=== PATIENT | female | born 1960 | race Caucasian/White ===

== ENCOUNTER 2020-07-26 08:56 | Outpatient (CLI) | payer OTHER, SELFPAY ==
[2020-07-26 10:02] LABS: SARS-CoV-2 Ag Positive (Negative)
== END 2020-07-26 08:57 | disposition home or self-care (01) ==
LOC: CHSLAB 08:58
PROVIDERS: PCP Family Medicine; Visit Provider Family Medicine
DX: U07.1 COVID-19 (principal)
CPT/HCPCS: 87426

== ENCOUNTER 2021-03-05 16:24 | Outpatient (CLI) | payer OTHER, SELFPAY ==
[2021-03-05 17:41] LABS: SARS-CoV-2 RNA PCR Negative (Negative)
== END 2021-03-05 16:25 | disposition home or self-care (01) ==
LOC: CHSLAB 16:27
PROVIDERS: PCP Family Medicine; Visit Provider Family Medicine
DX: R05 Cough (principal); Z20.822 Contact with and (suspected) exposure to COVID-19
CPT/HCPCS: C9803; U0003; U0005

== ENCOUNTER 2021-08-21 10:48 | Outpatient (CLI) | payer OTHER, SELFPAY ==
--- NOTE | ~2021-08-21 | XR_ITS ---
XR femur LT min 2V DATE: 08/21/2021 11:18 INDICATION: Left leg pain TECHNIQUE: AP and lateral views COMPARISON: None FINDINGS: No fracture or dislocation, periosteal reaction or bone destruction is detected. There is osteoarthritic change at the knee, greater at the medial compartment. IMPRESSION: Left knee osteoarthritis Reviewed, dictated and finalized at location B. RBOAT MECHANIC IMPRESSION: Left knee osteoarthritis
--- NOTE | ~2021-08-21 | XR_ITS ---
XR knee LT 3V DATE: 08/21/2021 11:18 INDICATION: Left knee pain, strain TECHNIQUE: AP, lateral, sunrise views COMPARISON: None FINDINGS: There is tricompartment osteoarthritis, greater involvement of patellofemoral and medial co mpartments including moderately prominent loss of medial compartment joint space height. Hypertrophic change of the medial tibial spine. No fracture or dislocation or joint effusion, radiopaque intra-articular loose body or chondrocalcino sis is evident. No periosteal reaction or bone destruction. IMPRESSION: Osteoarthritis Reviewed, dictated and finalized at location B. GE HAND IMPRESSION: Osteoarthritis
== END 2021-08-21 10:49 | disposition home or self-care (01) ==
LOC: CHSLAB 10:50
PROVIDERS: PCP Family Medicine; Visit Provider Family Medicine
DX: S76.312A Strain of muscle, fascia and tendon of the posterior muscle group at thigh level, left thigh, initial encounter (principal)
CPT/HCPCS: 73552; 73562

== ENCOUNTER 2021-08-28 15:46 | Outpatient (RCR) | payer OTHER, SELFPAY ==
--- NOTE | 2021-08-28 16:32 | PTOPEVAL ---
Thank you for referring Fortunato Segura to [facility].? The patient is scheduled to be seen for therapy? _3___x/week for 12 visits. Please review, sign, date and return this plan of care WESLEY. I agree with and certify that the following plan of care is medically necessary. Referring Physician Date Admitting Provider: Attending Provider: Osorio Del Angel MD Referring Provider: *PT Outpatient Evaluation Start: 08/28/21 15:53 Freq: Status: Active Protocol: Document 08/28/21 15:53 JUAN JOSÉ (Rec: 08/28/21 16:31 JUAN JOSÉ [id number]) Therapy Assessment Status Assessment Status Assessment Status Evaluation Evaluation Information Problem Diagnosis left thigh pain Onset 04/30/21 Subjective Information Pt. reports that she develop Query Text:As Reported By Patient/ left leg pain sometime in Family April. She describes no particular incident except one day of walking up and down steps frequently. She states that pain is mostly is behind the left knee and can radiate into the thigh. She notices pain mostly after a work day or with getting up from a seated position. 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 Pt. reports that pain is most notable when she is up walking around or having to bend her leg. She reports she will get occassional pain at night. She states that her goal is to decrease her left leg pain with activity. Pain Assessment Timing of Pain Assessment Timing of Pain Assessment Pre-Treatment Pain Scale Pain Scale Used Numeric (1 - 10) Self Report Pain Assessment Left Leg(s) Reported Pain Level 0 Lowest Pain Intensity 0 Greatest Pain Intensity 5 Pain Score Pain Score 0: Self Report Interventions Used Interventions Used By Clinicians Activity or ADL's,Exercise Cervical and Lumbar ROM Lumbar ROM Lumbar Flexion Active [place] Query Text:Hands to: Lumbar Extension (0-40) 10 Query Text:Active in Degrees Lumbar Lateral Flexion Right (0-40) 20 Query Text:Active in Degrees Lumbar Lateral Flexion Left (0-40) 20 Query Text:Active
--- NOTE | 2021-10-13 09:23 | PCPTNOTE ---
Mrs. Segura attended a total of 3 treatment sessions from 08/28/21 to 09/09/21. She was contacted via telephone and stated that she was to see an orthopedic surgeon and would like to hold treatment. She will be discharged from our care. Refer to pt. last Rx note for discharge status.
== END 2021-09-09 10:38 | disposition home or self-care (01) ==
LOC: CHSPT 15:46
PROVIDERS: PCP Family Medicine; Visit Provider Family Medicine
DX: S76.912A Strain of unspecified muscles, fascia and tendons at thigh level, left thigh, initial encounter (principal)
CPT/HCPCS: 97014; 97110; 97161; G0283

== ENCOUNTER 2021-10-21 14:51 | Outpatient (CLI) | payer OTHER, SELFPAY ==
[2021-10-21 15:07] LABS: Basophils Percent Auto 0.9 % (0.0-1.0); Eosinophils Absolute Auto 0.39 K/mm3 (0.02-0.50); Eosinophils Percent Auto 3.6 % (1.0-6.0); Hematocrit 45.1 % (35.0-49.0); Immature Granulocyte Absolute 0.03 K/mm3 (0.00-0.00); Immature Granulocyte Percent A 0.3 % (0.0-0.0); Lymphocytes Absolute Auto 3.27 K/mm3 (1.10-4.50); Mean Corpuscular HGB Conc 33.3 g/dL (32.0-36.0); Mean Corpuscular Hemoglobin 29.5 pg (27.0-31.0); Mean Corpuscular Volume 88.8 fL (78.0-102.0); Mean Platelet Volume 9.2 fl (9.2-11.8); Monocytes Percent Auto 9.2 % (2.0-11.0); Neutrophils Absolute Auto 6.1 K/mm3 (1.7-7.2); Platelet Count Result 416 K/mm3 (150-420); Red Blood Count 5.08 M/mm3 (4.20-5.40); Red Cell Distribution Width 13.3 % (11.6-14.4); White Blood Count 10.9 K/mm3 (4.8-10.8)
[2021-10-21 15:26] LABS: Alanine Aminotransferase 44 U/L (14-59); Albumin Level 3.6 g/dL (3.4-5.0); Alkaline Phosphatase 111 U/L (46-116); Amylase 24 U/L (25-115); Anion Gap 8 mmol/L (8-16); Bilirubin,Total 0.7 mg/dL (0.00-1.00); Blood Urea Nitrogen 21 mg/dL (7-18); CRP 1.2 mg/dL (0.0-0.9); Calcium 8.8 mg/dL (8.5-10.1); Carbon Dioxide 30 mmol/L (21-32); Chloride 102 mmol/L (98-108); Estimated Glomerular Filt Rate > 60; Glucose 253 mg/dL (70-99); Lipase 47 U/L (73-393); Osmolality Calculated 302 mOsm/kg (285-295); Potassium 4.4 mmol/L (3.5-5.1); Sodium 140 mmol/L (136-145); Total Protein 7.4 g/dL (6.4-8.2)
[2021-10-21 15:38] LABS: Aspartate Amino Transferase 18 U/L (15-37)
[2021-10-21 15:39] LABS: D Dimer 13.14 mg/L (0.19-0.50)
== END 2021-10-21 14:52 | disposition home or self-care (01) ==
LOC: CHSLAB 14:52
PROVIDERS: PCP Family Medicine; Visit Provider Nurse Practitioner Family
DX: R10.9 Unspecified abdominal pain (principal); R07.9 Chest pain, unspecified
CPT/HCPCS: 36415; 80053; 82150; 83690; 85025; 85380; 86140

== ENCOUNTER 2021-10-21 16:15 | Emergency (ER) | payer OTHER, SELFPAY ==
--- NOTE | ~2021-10-21 | CT_ITS ---
EXAMINATION: CTA chest PE protocol DATE: 10/21/2021 17:32 INDICATION: Chest pain TECHNIQUE: Computed tomography angiography (CTA) of the chest was performed with 100 mL Omnipaque-350 intravenous contrast timed to evaluate the pulmonary arteries. Coronal maximum intensity projection 3D-reconstructions were created by the technologist. The dose-length product (DLP) was 644.82 mGy-cm. Automated exposure control and iterative reconstruction technique were employed. COMPARISON: 05/19/2011 FINDINGS: The pulmonary arteries are well-opacified. No pulmonary embolism is identified. The lungs a re free of acute opacities. There is no pleural effusion or pneumothorax. No pathologically enlarged thoracic lymph nodes are identified. The heart size is normal. There is severe thoracic spondylosis. IMPRESSION: 1. No pulmonary embolism or acute cardiopulmonary abnormality. Reviewed, dictated and finalized at location F. KLOAD CHECKER
[2021-10-21 16:25] VITALS: BP 150/82; PULSE 82; RESP 20; TEMP 36.4; O2SAT 96
--- NOTE | 2021-10-21 16:37 | ECG_ITS ---
Measurements Intervals [place] Rate: 78 P: 23 VA: 178 QRS: -9 QRSD: 85 T: 11 QT: 385 QTc: 441 Interpretive Statements SINUS RHYTHM DELAYED PRECORDIAL R/S TRANSITION LEFT VENTRICULAR HYPERTROPHY MINIMAL Q WAVES- HIGH LATERAL LEADS BASELINE ARTIFACT- I, II, III, AVR, AVL, AVF, V1-V6 BORDERLINE ECG Electronically Signed On 10-25-2021 19:06:40 MAINFRAME APPLICATIONS DEVELOPER by Benjamin Huston D.O.
[2021-10-21] MEDS: KETOROLAC (*BKC) 60 MG/2 ML VIAL IM (17:13)
[2021-10-21] MEDS: ASPIRIN 325 MG ENTERIC TABLET PO (17:15)
[2021-10-21] MEDS: SODIUM CHLORIDE 0.9% IV 1,000 ML 999 ML IV CONT (17:15)
[2021-10-21 17:17] LABS: Base Excess ABG 0.7 mmol/L (0-2); HCO3 ABG 24.5 mmol/L (23-29); Oxygen Content ABG 20.1 %vol (16.0-22.0); Oxygen Saturation ABG 96.8 % (95-97); Oxyhemoglobin 96.6 % (94-100); PCO2 ABG 36.9 mmHg (35-45); PO2 ABG 87.8 mmHg (80-90); Total Hemoglobin 14.8 g/dL (12.0-18.0); pH ABG 7.44 (7.35-7.45)
[2021-10-21 17:19] LABS: Device ROOM AIR; Modified Allen's Test Pass; Site Drawn LEFT RADIAL
[2021-10-21 17:37] LABS: SARS-CoV-2 Ag Negative (Negative)
[2021-10-21 17:51] LABS: Troponin I 11.7 ng/L (0.00-60.4)
--- NOTE | 2021-10-21 17:52 | PC.NURSE ---
pt resting per cot , watching tv. call mirza in reach. enc to ring for assist as needed.
--- NOTE | 2021-10-21 18:26 | ED.CHESTPAIN ---
HPI - Chest Pain General Chief Complaint: Recheck/Abnormal Lab/Rx Stated Complaint: abdominal pain Time Seen by Provider: 10/21/21 16:18 Source: patient and RN notes reviewed Mode of arrival: ambulatory Limitations: no limitations History of Present Illness MD complaint: chest pain and other (mild persistent central back pain radiating to the chest) Onset (ago): day(s) (2) Timing of current episode: constant and still present Prior episodes: Yes Pain location: left chest and posterior Severity: mild Pain scale (0-10): 6 Quality: aching and dull Context: recent surgery Associated symptoms: other (none.) Treatment prior to arrival: none Related Data Home Medications Medication Instructions Recorded Confirmed atorvastatin 20 mg PO DAILY 10/21/21 10/21/21 hydrochlorothiazide 25 mg PO DAILY 10/21/21 10/21/21 insulin glargine [Basaglar KwikPen 100 unit SUBCUT HS 10/21/21 10/21/21 U-100 Insulin] insulin lispro [Admelog U-100 30 unit SUBCUT TID 10/21/21 10/21/21 Insulin lispro] lisinopril 20 mg PO DAILY 10/21/21 10/21/21 meloxicam 15 mg PO DAILY PRN 10/21/21 10/21/21 omeprazole 20 mg PO DAILY 10/21/21 10/21/21 pantoprazole 40 mg PO DAILY 10/21/21 10/21/21 paroxetine HCl 20 mg PO DAILY 10/21/21 10/21/21 Allergies Allergy/AdvReac Type Severity Reaction Status Date / Time amoxicillin Allergy Unknown Itching Verified 10/21/21 16:57 Penicillins Allergy Unknown Itching Verified 10/21/21 16:57 Sulfa (Sulfonamide Allergy Hives Verified 10/21/21 16:57 Antibiotics) Review of Systems Review of Systems: All systems reviewed & are unremarkable except as noted in HPI and below PMFSH Past Medical History Medical History (Updated 10/22/21 @ 03:55 by Pedro Padilla MD) Chest pain in adult Chest pain of unknown etiology Exam Const: General: healthy appearing, no acute distress and alert Nutritional Appearance: well nourished Orientation/consciousness: patient oriented x3 Limitations: no limitations HENMT: Head: normal to inspection Ears: external ears normal, TM's normal bilaterally and EAC's normal General nose exam: Normal external nose present and Normal nares present Face and sinus: sinuses nontender Mouth: Yes lip normal and Yes moist mucous membranes Eyes: Conjunctivae: conjunctivae normal Pupils: Equal, round and reactive pupils present EOM: EOMs intact bilaterally Neck: Neck: normal visual inspection and no lymphadenopathy Chest: Chest palpation & inspection: normal inspection of the chest Resp: Effort & Inspection: normal respiratory effort Auscultation: clear to auscultation bilaterally Cardio: Rate: regular rate Rhythm: regular rhythm GI: GI Palp: Yes Soft to palpation and No Tenderness to palpation present (GI) Auscultation: normal bowel sounds : General: Yes bladder normal to palpation and Yes no CVA tenderness Back/Spine/Pelvis: Back: no CVA tenderness Skin: General skin exam: normal color Rashes: no rashes Neuro: General: patient oriented x3, moves all extremities, no meningeal signs, no focal motor deficits and CN's II-XI intact bilaterally Extrem: General: normal to inspection and no pedal edema Psych: Appearance: grossly normal and well kempt Mental Status: mental status grossly normal Affect: normal affect Attitude: cooperative Thought content: Yes Normal thought content present Course Course Emergency Course: Pt was stable and comfortable in the ED. Reevaluation(s) Reevaluation #1: VSS Date: 10/21/21 Time: 17:13 Vital Signs Vital signs: Vital Signs Temperature 36.4 C L 10/21/21 16:25 Pulse Rate 82 10/21/21 16:25 Respiratory Rate 20 10/21/21 16:25 Blood Pressure 150/82 H 10/21/21 16:25 Pulse Oximetry 96 10/21/21 16:25 Temperature 36.3 C L 10/21/21 18:33 Pulse Rate 68 10/21/21 18:33 Respiratory Rate 20 10/21/21 18:33 Blood Pressure 182/83 H 10/21/21 18:33 Pulse Oximetry 98 10/21/21 18:33 MDM - Chest Pain Differential
[2021-10-21 18:33] VITALS: BP 182/83; PULSE 68; RESP 20; TEMP 36.3; O2SAT 98
== END 2021-10-21 18:42 | disposition home or self-care (01) ==
PROVIDERS: Emergency Provider Emergency Medicine; PCP Family Medicine
DX: R07.9 Chest pain, unspecified (principal)
CPT/HCPCS: 36415; 36600; 71275; 82805; 84484; 87426; 93005; 96360; 96372; 99284; A9270; C9803; J1885; J7030; Q9967

== ENCOUNTER 2021-11-27 12:06 | Outpatient (CLI) | payer OTHER, SELFPAY ==
[2021-11-27 12:26] LABS: Influenza Control Valid (Valid)
== END 2021-11-27 12:07 | disposition home or self-care (01) ==
LOC: CHSLAB 12:08
PROVIDERS: PCP Family Medicine; Visit Provider Family Medicine
DX: J06.9 Acute upper respiratory infection, unspecified (principal)
CPT/HCPCS: 87081; 87804; 87880

== ENCOUNTER 2021-12-15 11:25 | Outpatient (CLI) | payer OTHER, SELFPAY ==
--- NOTE | ~2021-12-15 | XR_ITS ---
EXAMINATION: XR femur LT min 2V DATE: 12/15/2021 11:52 INDICATION: Strain of muscle, intermittent posterior leg pain. TECHNIQUE: 2 views of left femur on 4 radiographs were obtained. COMPARISON: None. FINDINGS: Bone alignment is normal. No fracture. There is moderate left knee osteoarthritis, worst in the medial compartment. Left hip joint space is normal. No knee joint effusion. IMPRESSION: 1. Moderate left knee osteoarthritis. Reviewed, dictated and finalized at location B.
--- NOTE | ~2021-12-15 | XR_ITS ---
EXAMINATION: XR knee LT 3V DATE: 12/15/2021 11:52 INDICATION: Strain of muscle, intermittent posterior leg pain. TECHNIQUE: 3 views of left knee were obtained. COMPARISON: None. FINDINGS: Bone alignment is normal. No fracture. There is moderate osteoarthritis of medial compartme nt and mild osteoarthritis of lateral and patellofemoral compartments. No knee joint effusion. IMPRESSION: 1. Moderate left knee osteoarthritis. Reviewed, dictated and finalized at location B.
== END 2021-12-15 11:26 | disposition home or self-care (01) ==
LOC: CHSIMG 11:26
PROVIDERS: PCP Family Medicine; Visit Provider Family Medicine
DX: S76.312A Strain of muscle, fascia and tendon of the posterior muscle group at thigh level, left thigh, initial encounter (principal)
CPT/HCPCS: 73552; 73562

== ENCOUNTER 2022-02-19 12:49 | Outpatient (CLI) | payer OTHER, SELFPAY ==
--- NOTE | ~2022-02-19 | MM_ITS ---
EXAMINATION: MM screening richard BI w fer HISTORY: Screening mammogram TECHNIQUE: Craniocaudal and mediolateral oblique 3-D tomosynthesis images were obtained and synthetic 2-D images were generated. CAD analysis was submitted and interpreted. COMPARISON: 07/19/2015 bilateral screening mammogram BREAST PARENCHYMAL COMPOSITION: There are scattered areas of fibroglandular density. FINDINGS: Stable mild fibroglandular asymmetry, more prominent in the posterior upper outer left jose st, also present on 07/19/2015. There is no evidence of suspicious mass, calcification, or architectu ral distortion to suggest malignancy in either breast. There has been no suspicious interval change. IMPRESSION: 1. No mammographic evidence of malignancy. 2. Recommend routine screening mammography in one year. BI-RADS Category 2: Benign finding(s). Reviewed, dictated and finalized at location A.
== END 2022-02-19 12:50 | disposition home or self-care (01) ==
LOC: CHSIMG 12:51
PROVIDERS: PCP Family Medicine; Visit Provider Family Medicine
DX: Z12.31 Encounter for screening mammogram for malignant neoplasm of breast (principal)
CPT/HCPCS: 77063; 77067

== ENCOUNTER 2022-04-06 00:11 | Day surgery (SDC) | payer OTHER, SELFPAY ==
[2022-03-23 08:57] VITALS: BMI 32.3
[2022-04-06 09:02] VITALS: BP 148/81; PULSE 82; RESP 18; TEMP 37.1; O2SAT 93
[2022-04-06 09:02] LABS: Glucose Point of Care 154 mg/dl (65-105)
[2022-04-06] MEDS: LACTATED RINGERS 1,000 ML 150 ML IV CONT (09:05)
--- NOTE | 2022-04-06 09:26 | WPDANESEPPF ---
Anes - Initial Pre Proc Eval Procedure: Operation Date: 04/06/22 10:30 Proposed Procedures p Screening Colonoscopy - Beto Maloney MD Date/Time: 04/06/22 09:26 Surgeon: Beto Maloney MD Pre Op Diagnosis: neoplasm screening Patient Data Age: 61 Gender: F Height: 1.68 m Weight: 90.2 kg Last Vital Signs Temp 98.7 F 04/06/22 09:02 Pulse 82 04/06/22 09:02 Resp 18 04/06/22 09:02 BP 148/81 H 04/06/22 09:02 Pulse Ox 93 04/06/22 09:02 O2 Del Method Room Air 04/06/22 09:02 Allergies Allergy/AdvReac Type Severity Reaction Status Date / Time amoxicillin Allergy Unknown Itching Verified 04/06/22 09:01 Penicillins Allergy Unknown Itching Verified 04/06/22 09:01 Sulfa (Sulfonamide Allergy Hives Verified 04/06/22 09:01 Antibiotics) Home Medications Medication Instructions Recorded Confirmed Type atorvastatin 20 mg tablet 20 mg PO DAILY 10/21/21 04/06/22 History hydrochlorothiazide 25 mg tablet 25 mg PO DAILY 10/21/21 04/06/22 History insulin glargine 100 unit/mL (3 100 unit subcut HS 10/21/21 04/06/22 History mL) subcutaneous pen (Basaglar KwikPen U-100 Insulin) insulin lispro 100 unit/mL 30 unit subcut TID 10/21/21 04/06/22 History subcutaneous solution (Admelog U-100 Insulin lispro) lisinopril 20 mg tablet 20 mg PO DAILY 10/21/21 04/06/22 History omeprazole magnesium 20 mg 20 mg PO BID #20 tabs 10/21/21 04/06/22 Rx tablet,delayed release (Prilosec OTC) paroxetine HCl 20 mg tablet 20 mg PO DAILY 10/21/21 04/06/22 History Laboratory Tests 04/06/22 08:59 POC Capillary Glucose 154 mg/dl H mg/dl (65-105) Patient hx anesthesia problems: none Family hx anesthesia problems: none Results Review: All pre-operative results and documents have been reviewed as part of the pre-operative evaluation. [facility]LY [facility] Past Medical History Medical History (Updated 10/22/21 @ 03:55 by Pedro Padilla MD) Chest pain in adult Chest pain of unknown etiology Social History Social History Smoking status: Never smoker Alcohol intake: never Substance use: never Substance use type: does not use Living arrangements: with family Spiritual care concerns: No Anes - Eval Final PreProcedure Day of Procedure 04/06/22 09:26 Patient weight: obese Heart: regular rate and rhythm Lungs: clear to auscultation Airway: Mallampati scale class II Neurological: alert and oriented Last oral intake: >/= 8 hours ASA classification: III Emergent: no Anesthetic plan: proceed Anesthesia type and monitoring: general GIVS and standard monitoring Results Review: All pre-operative results and documents have been reviewed as part of the pre-operative evaluation. Informed Consent: The patient's anesthetic plan and its attendant risks and benefits were discussed with the patient/family/POA. Questions were solicited and answers provided to the satisfaction of the patient/family/POA.
--- NOTE | 2022-04-06 09:46 | P.HP_ITS ---
H&P: HPI History of Present Illness Date/Time: 04/06/22 09:46 Chief Complaint: Neoplasia screening. Narrative: This is a 61-year-old white female patient presents for neoplasia screening colonoscopy. Patient's last colonoscopy 2008. Patient has a history of a pyloric ulcer by EGD in 2008. Patient also gives a history of a benign surgical resection of pancreatic mass in 2010. Patient reports her current weight appetite and bowel movements are normal. She denies abdominal pain. She has had no bleeding. Family history noncontributory. Patient presents today for screening colonoscopy. [facility] Past Medical History Medical History (Updated 04/06/22 @ 09:47 by Beto Maloney MD) Chest pain in adult Chest pain of unknown etiology Social History Social History Smoking status: Never smoker Alcohol intake: never Substance use: never Substance use type: does not use Living arrangements: with family Spiritual care concerns: No Meds Home Medications and Allergies Home Medications Medication Instructions Recorded Confirmed Type atorvastatin 20 mg tablet 20 mg PO DAILY 10/21/21 04/06/22 History hydrochlorothiazide 25 mg tablet 25 mg PO DAILY 10/21/21 04/06/22 History insulin glargine 100 unit/mL (3 100 unit subcut HS 10/21/21 04/06/22 History mL) subcutaneous pen (Basaglar KwikPen U-100 Insulin) insulin lispro 100 unit/mL 30 unit subcut TID 10/21/21 04/06/22 History subcutaneous solution (Admelog U-100 Insulin lispro) lisinopril 20 mg tablet 20 mg PO DAILY 10/21/21 04/06/22 History omeprazole magnesium 20 mg 20 mg PO BID #20 tabs 10/21/21 04/06/22 Rx tablet,delayed release (Prilosec OTC) paroxetine HCl 20 mg tablet 20 mg PO DAILY 10/21/21 04/06/22 History Allergies Allergy/AdvReac Type Severity Reaction Status Date / Time amoxicillin Allergy Unknown Itching Verified 04/06/22 09:01 Penicillins Allergy Unknown Itching Verified 04/06/22 09:01 Sulfa (Sulfonamide Allergy Hives Verified 04/06/22 09:01 Antibiotics) Vital Signs Vital Signs - 24 hr 04/06/22 09:02 Temperature 98.7 F Pulse Rate 82 Respiratory Rate 18 Blood Pressure 148/81 H Pulse Oximetry 93 Oxygen Delivery Room Air Assessment and Plan Assessment and plan (1) Encounter for screening colonoscopy: Code(s): Z12.11 - Encounter for screening for malignant neoplasm of colon Status: Acute Assessment and Plan: Patient presents today for screening colonoscopy. Appears to be at average risk for colon polyps. Further recommendations will be given after endoscopy.
[2022-04-06 10:11] VITALS: BP 105/65; PULSE 78; RESP 26; O2SAT 96
[2022-04-06 10:19] VITALS: BP 121/69; PULSE 84; RESP 24; O2SAT 99
[2022-04-06 10:29] VITALS: BP 106/74; PULSE 73; RESP 21; O2SAT 99
[2022-04-06 10:40] LABS: Glucose Point of Care 159 mg/dl (65-105)
== END 2022-04-06 10:40 | disposition home or self-care (01) ==
PROVIDERS: PCP Family Medicine; Visit Provider Internal Medicine Gastroenterology
PROC: 0DJD8ZZ Inspection of Lower Intestinal Tract, Via Natural or Artificial Opening Endoscopic (ICD-10-PCS; CPT 45378; principal; 2022-04-06 10:30)
DX: Z12.11 Encounter for screening for malignant neoplasm of colon (principal); K63.5 Polyp of colon; Z98.0 Intestinal bypass and anastomosis status; Z90.49 Acquired absence of other specified parts of digestive tract; Z79.4 Long term (current) use of insulin; E66.9 Obesity, unspecified; Z68.32 Body mass index [BMI] 32.0-32.9, adult; Z87.11 Personal history of peptic ulcer disease
CPT/HCPCS: 45385; 82948; 88305; J2704; J7120

== ENCOUNTER 2022-09-12 07:23 | Emergency (ER) | payer OTHER, SELFPAY ==
[2022-09-12 07:23] VITALS: BP 167/66; PULSE 94; RESP 16; TEMP 37.2; O2SAT 95
--- NOTE | 2022-09-12 08:16 | ED.GENADULT ---
HPI - General Adult General Chief complaint: Upper Respiratory Infection Stated complaint: cough/congestion,ears and throat sore Time Seen by Provider: 09/12/22 07:26 Source: patient Mode of arrival: ambulatory Limitations: no limitations History of Present Illness HPI narrative: This is a 62-year-old female with a history of sinus congestion and drainage with some currently sore throat symptoms have been off and on for 1 month has seen her primary that started her on dose of antibiotics and antihistamines, the patient continues to have sinus congestion and drainage with a nonproductive cough with no shortness of breath no audible wheezing no fever chills. Onset (ago): month(s) Severity: mild Related Data Home Medications Medication Instructions Recorded Confirmed atorvastatin 20 mg tablet 20 mg PO DAILY 10/21/21 09/12/22 hydrochlorothiazide 25 mg tablet 25 mg PO DAILY 10/21/21 09/12/22 insulin glargine 100 unit/mL (3 100 unit subcut HS 10/21/21 09/12/22 mL) subcutaneous pen (Basaglar KwikPen U-100 Insulin) insulin lispro 100 unit/mL 30 unit subcut TID 10/21/21 09/12/22 subcutaneous solution (Admelog U-100 Insulin lispro) lisinopril 20 mg tablet 20 mg PO DAILY 10/21/21 09/12/22 paroxetine HCl 20 mg tablet 20 mg PO DAILY 10/21/21 09/12/22 Allergies Allergy/AdvReac Type Severity Reaction Status Date / Time amoxicillin Allergy Unknown Itching Verified 04/06/22 09:01 Penicillins Allergy Unknown Itching Verified 04/06/22 09:01 Sulfa (Sulfonamide Allergy Hives Verified 04/06/22 09:01 Antibiotics) Review of Systems Review of Systems: All systems reviewed & are unremarkable except as noted in HPI and below PMFSH Past Medical History Medical History Chest pain in adult Chest pain of unknown etiology Social History Social History Smoking status: Never smoker Alcohol intake: never Substance use: never Substance use type: does not use Spiritual care concerns: No Exam Const: General: healthy appearing Nutritional Appearance: well nourished Orientation/consciousness: patient oriented x3 Limitations: no limitations HENMT: Head: normal to inspection Face/Nose/Sinus: Normal external nose present Face and sinus: normal facial exam Mouth: Yes Normal oral and palatal mucosa present Eyes: Conjunctivae: conjunctivae normal Pupils: Equal, round and reactive pupils present EOM: EOMs intact bilaterally Direct Ophthalmoscopy: no photophobia Neck: Neck: normal visual inspection Chest: Chest palpation & inspection: normal inspection of the chest Resp: Effort & Inspection: normal respiratory effort Auscultation: clear to auscultation bilaterally Cardio: Rate: regular rate Rhythm: regular rhythm GI: GI Palp: Yes Soft to palpation : General: Yes bladder normal to palpation Urinary Catheter: Urinary Catheter: patent and draining Back/Spine/Pelvis: Back: no CVA tenderness Skin: General skin exam: normal color Rashes: no rashes Wounds: no wounds Neuro: General: patient oriented x3 Cranial nerves: Yes Nystagmus not present Speech: normal speech Extrem: General: normal to inspection Psych: Mental Status: mental status grossly normal Affect: normal affect Course Course Emergency Course: COVID/influenza/ strep in RSV reviewed with patient which was all negative and will treat patient with sinus infection. Vital Signs Vital signs: Vital Signs Temperature 37.2 C 09/12/22 07:23 Pulse Rate 94 09/12/22 07:23 Respiratory Rate 16 09/12/22 07:23 Blood Pressure 167/66 H 09/12/22 07:23 Pulse Oximetry 95 09/12/22 07:23 Oxygen Delivery Room Air 09/12/22 07:23 Temperature 37.2 C 09/12/22 07:23 Pulse Rate 94 09/12/22 07:23 Respiratory Rate 16 09/12/22 07:23 Blood Pressure 167/66 H 09/12/22 07:23 Pulse Oximetry 95 09/12/22 07:23 Oxygen De
[2022-09-12 08:17] LABS: Influenza A QL RT-PCR Negative (Negative); Influenza B QL RT-PCR Negative (Negative); RSV RNA, RT-PCR Negative (Negative); SARS-CoV-2 RNA PCR Negative (Negative); Strep Group A RT-PCR Not Detected (Negative)
[2022-09-12 08:22] VITALS: BP 160/66; PULSE 94; RESP 20; TEMP 37.2; O2SAT 99
== END 2022-09-12 08:25 | disposition home or self-care (01) ==
PROVIDERS: Emergency Provider Emergency Medicine; PCP Physician Assistant
DX: J32.9 Chronic sinusitis, unspecified (principal); Z79.4 Long term (current) use of insulin; Z20.822 Contact with and (suspected) exposure to COVID-19
CPT/HCPCS: 87637; 87651; 99283

== ENCOUNTER 2024-01-10 15:09 | Outpatient (CLI) | payer BC, SELFPAY ==
[2024-01-10 15:55] LABS: Alanine Aminotransferase 40 U/L (6-35); Albumin Level 4.2 g/dL (3.5-5.1); Alkaline Phosphatase 103 U/L (38-126); Aspartate Amino Transferase 27 U/L (14-36); Bilirubin,Total 1.4 mg/dL (0.2-1.3); Lipase 48 U/L (23-300)
== END 2024-01-10 15:10 | disposition home or self-care (01) ==
LOC: ANHLAB 15:11
PROVIDERS: PCP Physician Assistant; Visit Provider Nurse Practitioner Family
DX: R10.13 Epigastric pain (principal); R17 Unspecified jaundice; R74.8 Abnormal levels of other serum enzymes
CPT/HCPCS: 36415; 80076; 83690

== ENCOUNTER 2024-02-09 14:22 | Outpatient (CLI) | payer BC, SELFPAY ==
--- NOTE | ~2024-02-09 | MM_ITS ---
EXAMINATION: MM screening richard BI w fer HISTORY: Screening TECHNIQUE: Craniocaudal and mediolateral oblique 3-D tomosynthesis images were obtained and synthetic 2-D images were generated. CAD analysis was submitted and interpreted. COMPARISON: Comparison to multiple prior studies sequentially, with oldest reviewed study dated 07/01. BREAST PARENCHYMAL COMPOSITION: Not dense: There are scattered areas of fibroglandular density. FINDINGS: There is no evidence of suspicious mass, calcification, or architectural distortion to sugg est malignancy in either breast. There has been no suspicious interval change. IMPRESSION: 1. No mammographic evidence of malignancy. 2. Recommend routine screening mammography in one year. BI-RADS Category 1: Negative Reviewed, dictated and finalized at location B.
== END 2024-02-09 14:23 | disposition home or self-care (01) ==
PROVIDERS: Visit Provider Physician Assistant
DX: Z12.31 Encounter for screening mammogram for malignant neoplasm of breast (principal)
CPT/HCPCS: 77063; 77067